=== PATIENT | male | born 1980 ===

== ENCOUNTER → 2018-03-18 22:48 | Outpatient (REF) | payer OTHER, SELFPAY ==
[2018-03-19 00:42] LABS: Hematocrit 43.9 % (41-53); Hemoglobin 14.9 g/dL (13.5-17.5); Mean Corpuscular HGB Conc 33.9 % (30-36); Mean Corpuscular Hemoglobin 27.6 PG (26-34); Mean Corpuscular Volume 81.3 fL (80-100); Platelet Count 218 X10^3/uL (150-400); Red Cell Distribution Width 13.3 % (11.6-14.8)
[2018-03-19 00:46] LABS: Add Manual Diff / Slide Review YES
[2018-03-19 01:27] LABS: Erythrocyte Sedimentation Rate 4 MM/HR (0-15)
[2018-03-19 07:19] LABS: Neutrophils Absolute Manual 3010 /uL (3000-5900); Total Cells Counted 100
[2018-03-19 07:20] LABS: RBC Morphology Normal Morphology
== END ==
LOC: LAB 22:48
PROVIDERS: Visit Provider Naturopath
DX: Z13.89 Encounter for screening for other disorder (principal)
CPT/HCPCS: 36415; 85025; 85651